=== PATIENT | female | born 1990 | race Caucasian/White ===

== ENCOUNTER 2016-06-13 16:12 | Emergency (ER) | payer OTHER ==
[~2016-06-13] VITALS: Ht 157.5 cm; Wt 56.7 kg
[~2016-06-13 16:12] MED LIST: VICODIN 500 MG-1 TAB PO
[2016-06-13 16:25] VITALS: BP 113/76
[2016-06-13] MEDS ORDERED: MIRENA1 EACH (17:02)
--- NOTE | 2016-06-13 17:08 | ED AMS/SEIZURE/WEAK/DIZZY ---
History of Present Illness General Chief Complaint: General Adult Stated Complaint: DIZZINESS X2 DAYS Source: patient Exam Limitations: no limitations Vital Signs & Intake/Output Vital Signs & Intake/Output Vital Signs Date Time Temp Pulse Resp B/P Pulse O2 O2 Flow FiO2 Ox Delivery Rate 06/13 1843 99 Room Air 06/13 1625 98.0 84 20 113/76 99 Room Air Allergies Coded Allergies: NO KNOWN ALLERGIES (02/28/12) Reconcile Medications Levonorgestrel (Mirena) 20 MCG/24 HOUR (5 YEARS) IUD CONTROL (Reported) Meclizine HCl 25 MG TABLET 1 TAB PO TIDPRN PRN dizziness Ondansetron (Zofran Odt) 4 MG TAB.RAPDIS 1 TAB SL TID PRN nausea Triage Note: RECEIVED 25 YO FEMALE C/O DIZZINESS STARTED 2 AM THURSDAY MORNING GETTING UP. + NAUSEA, NO VOMITING/DIARRHEA. NO CP/SOB. PT DENIES BEING SICK RECENTLY. Triage Nurses Notes Reviewed? yes : No Patient currently breastfeeds: No HPI: This patient is a 25-year-old female who presented to the emergency department today for evaluation of dizziness. The patient reported that yesterday at 2:00 in the morning she woke up to get a glass of water because she was thirsty and when she stood up she felt very dizzy. The patient reported that she laid back down. She reported that she had dizziness throughout the day yesterday. She reported that she is still feeling dizzy, but it seems better than it did yesterday. She reported associated nausea, but no vomiting. She denied any headaches, visual changes, ringing in her ears, chest pain, difficulty breathing , abdominal pain, or any other associated symptoms. The patient reported that she has been staying hydrated. Past History Travel History Traveled to [place] past 21 day No Medical History Any Pertinent Medical History? see below for history Neurological: NONE EENT: NONE Cardiovascular: NONE Respiratory: NONE Gastrointestinal: NONE Hepatic: NONE Renal: nephrolithiasis Musculoskeletal: NONE Psychiatric: NONE Endocrine: NONE Blood Disorders: NONE Cancer(s): NONE Surgical History Surgical History: non-contributory Psychosocial History What is your primary language Divehi Tobacco Use: Never used Family History Hx Contributory? No Review of Systems Review of Systems Constitutional: Reports: no symptoms. EENTM: Reports: no symptoms. Respiratory: Reports: no symptoms. Cardiovascular: Reports: no symptoms. GI: Reports: see HPI. Genitourinary: Reports: no symptoms. Musculoskeletal: Reports: no symptoms. Skin: Reports: no symptoms. Neurological/Psychological: Reports: see HPI. All Other Systems: Reviewed and Negative Physical Exam Physical Exam General Appearance: well developed/nourished, no apparent distress, alert, awake Comments: Well-developed well-nourished person in no acute distress HEENT: Normal EENT exam, head normocephalic/atraumatic, moist mucous membranes PERRLA bilaterally. EOMI bilaterally with no nystagmus Neck: Supple, no lymphadenopathy. No midline tenderness and full range of motion Back: Normal gait Cardiovascular: Regular rate and rhythm with no murmurs, rubs, or gallops Respiratory: Chest nontender. No respiratory distress. Speaking in full sentences Extremity: Normal and equal pulses Neuro: Alert oriented x3, motor sensory normal, cranial nerves II through XII grossly intact. Skin: No appreciable rash on exposed skin, skin is warm and dry. Psych: Mood and affect is normal Core Measures ACS in differential dx? Yes CVA/TIA Diagnosis: No Severe Sepsis Present: No Septic Shock Present: No Progress Differential Diagnosis: arrythmia, alcohol intoxication, anemia, benign positional vertigo, CVA/stroke, dehydration, drug intoxication, encephalitis, electrolyte imbalance, GI bleed, hypoglycemia, hypoxia, intracranial Hem., intracranial mass/tumor, meningitis, migraine GOLDEN, pneumonia, postural hypotension, presyncope, sepsis, seizure disorder, subarachnoid Hem., UTI/pyelo, vertebrobasilar insuff Plan of Care: Orders Procedure Date/time Status MISTAKE 06/13 1708 Active COMPREHENSIVE METABOLIC PANEL 06/13 1708 Complete CBC WITHOUT DIFFERENTIAL 06/13 1708 Complete EKG 06/13 1627 Active Laboratory Tests 06/13/16 1809: Anion Gap 12, Estimated GFR > 60, BUN/Creatinine Ratio 21.7, Glucose 87, Calcium 10.1, Total Bilirubin 0.6, AST 21, ALT 33, Alkaline Phosphatase 55, Total Protein 8.1, Albumin 5.0, Globulin 3.1, Albumin/Globulin Ratio 1.6, CBC w Diff NO MAN DIFF REQ, RBC 5.10, MCV 85.8, MCH 28.3, RDW 12.6, MPV 9.2, Gran % 72.8, Lymphocytes % 20.9, Monocytes % 4.4, Eosinophils % 1.5, Basophils % 0.4, Absolute Granulocytes 5.4, Absolute Lymphocytes 1.5, Absolute Monocytes 0.3, Absolute Eosinophils 0.1, Absolute Basophils 0, PUBS MCHC 33.0 Initial ED EKG: normal axis, normal intervals, normal p-waves, normal QRS complex, normal sinus rhythm, no ST T wave changes, 78 BPM Departure Departure Disposition: HOME OR SELF CARE Condition: Stable Clinical Impression Primary Impression: Dizziness Referrals: WYATT BETANCOURT MD (PCP/Family) Additional Instructions: Be sure to stay hydrated. Take meclizine as needed for dizziness. Take Zofran as needed for nausea. Follow-up with your primary care physician. Return for any worsening symptoms or concerns. Departure Forms: Customer Survey General Discharge Information Prescriptions: Current Visit Scripts Meclizine HCl 1 TAB PO TIDPRN PRN dizziness #12 TAB Ondansetron (Zofran Odt) 1 TAB SL TID PRN nausea #10 TAB
[2016-06-13 18:29] LABS: ABSOLUTE BASOPHIL COUNT 0 /CUMM (0.0-0.2); ABSOLUTE EOSINOPHIL COUNT 0.1 /CUMM (0.0-0.7); ABSOLUTE GRANULOCYTE CT 5.4 /CUMM (1.4-6.5); ABSOLUTE LYMPH COUNT 1.5 /CUMM (1.2-3.4); ABSOLUTE MONOCYTE COUNT 0.3 /CUMM (0.10-0.60); BASOPHIL % 0.4 % (0.0-2.0); EOSINOPHIL % 1.5 % (0-5); GRANULOCYTE % 72.8 % (42.2-75.2); HEMATOCRIT 43.8 % (37-47); MEAN CORPUSCULAR HGB 28.3 PG (27.0-31.0); MEAN CORPUSCULAR VOLUME 85.8 FL (81.0-99.0); MEAN PLATELET VOLUME 9.2 FL (7.4-10.4); PLATELET COUNT 222 /CUMM (130-400); RBC DISTRIBUTION WIDTH 12.6 % (11.5-14.5); WHITE BLOOD CELL COUNT 7.4 /CUMM (4.8-10.8)
[2016-06-13] MEDS ORDERED: ZOFRAN ODT4 M1 SL (19:39)
[2016-06-13] MEDS ORDERED: MECLIZINE HCL25 MG PO (19:39)
== END 2016-06-13 19:50 ==
LOC: ERH 16:12
PROVIDERS: Physician Assistant
DX: R42 Dizziness and giddiness (principal); R11.0 Nausea
CPT/HCPCS: 93005; 93010; 96374; J2405